=== PATIENT | female | born 1950 | race Caucasian/White ===

== ENCOUNTER 2020-07-10 06:17 | Day surgery (SDC) | payer MEDICARE, SELFPAY ==
[2020-07-05 10:51] VITALS: BMI 25.0
--- NOTE | 2020-07-05 12:29 | HP_ITS ---
DATE OF SERVICE: 07/10/2020 CHIEF COMPLAINT: Colitis. HISTORY OF PRESENT ILLNESS: The patient is a pleasant 69-year-old woman, who presents for colonoscopy. She has a history of colitis with intramural sigmoid and hepatic abscesses. She was hospitalized in May in [place] and at that time found to have portal vein thrombosis. She was started on Eliquis. Her colitis was treated with antibiotics. She had a second hospitalization for diarrhea after the first hospitalization and was discharged to finish an outpatient course of antibiotics. She will undergo followup colonoscopy because of her history of colitis with abscess as well as diarrhea. PAST MEDICAL HISTORY: 1. COPD. 2. Diabetes mellitus type 2. 3. Portal venous thrombosis. 4. Hypertension. 5. Elevated cholesterol. 6. Gastroesophageal reflux disease. 7. Acute congestive heart failure secondary to diastolic dysfunction during her prior hospitalization. Cardiac catheterization showing normal coronaries. CURRENT MEDICATIONS: Metoprolol, atorvastatin, Protonix, Eliquis, Lasix. ALLERGIES: SULFA. FAMILY HISTORY: This is reviewed with the patient and is noncontributory. SOCIAL HISTORY: One and half pack per day smoking. No alcohol use. REVIEW OF SYSTEMS: SKIN: No pruritus. HEENT: Negative. CARDIOPULMONARY: No shortness of breath or chest pain. GASTROINTESTINAL: As above. GENITOURINARY: Negative. NEUROPSYCHIATRIC: Negative. PHYSICAL EXAMINATION: lungs ar clear heart shows a regular rate and rhythm abdomen is soft and nontender, bowel sounds are present.. IMPRESSION: Colitis with intramural abscess and hepatic abscess. PLAN: Colonoscopy. Risks and benefits of the procedure have been discussed with the patient, who understands and agrees to proceed. She understands that she has been advised to stop anticoagulation 3 days before the procedure. MD LISANDRA Ashby/PETER / [phone] MTDAlisia
--- NOTE | 2020-07-05 14:15 | HO.ANESPROP2 ---
HPI - Anesthesia Eval Consult details Narrative: 69yo F for Colonoscopy [facility] Past Medical History Medical History (Updated 07/05/20 @ 13:50 by Belinda Cook) Abscess of sigmoid colon COPD (chronic obstructive pulmonary disease) Diabetes Elevated cholesterol GERD (gastroesophageal reflux disease) Hepatic lesion HTN (hypertension) Myocardial infarction On anticoagulant therapy On beta ric at home Portal vein thrombosis Smoking history Wears dentures Surgical History Surgical History (Updated 07/05/20 @ 10:55 by Belinda Cook) H/O colonoscopy Social History Social History Smoking Status: Current every day smoker Cigarettes Per Day: 5 Smoked in Last 30 Days: Yes Use of substances other than those prescribed or required for medical reasons: No Advance Directives Information Provided: No Recently lost weight without trying: No Meds Allergies Allergy/AdvReac Type Severity Reaction Status Date / Time Sulfa (Sulfonamide Allergy Intermediate Rash Verified 07/05/20 10:57 Antibiotics) Home Medications Medication Instructions Recorded Confirmed Type Anoro Ellipta 1 puff PO DAILY 07/05/20 07/05/20 History Eliquis 5 mg PO BID 07/05/20 07/05/20 History aspirin 81 mg PO DAILY 07/05/20 07/05/20 History atorvastatin 80 mg PO DAILY 07/05/20 07/05/20 History furosemide 20 mg PO DAILY 07/05/20 07/05/20 History metformin 500 mg PO DAILY 07/05/20 07/05/20 History metoprolol tartrate 25 mg PO BID 07/05/20 07/05/20 History pantoprazole 40 mg PO DAILY 07/05/20 07/05/20 History Exam Exam Date and Time: July 05, 2020 1415 Height,Weight and Vital Signs: Height 5 ft Weight 58.06 kg Pertinent Lab Results Pertinent Lab Results: 06/01/20 Outside provider WBC,HCT,HGB WNL PLT 466 (H) BUN/Creat WNL NA, K, CL WNL CO2 30(H) Alk Phos 155 (H) other LFT WNL Narrative Narrative: ECHO 05/05/20: LVEF 50-55%, No RWMA, impaired relax, Nonspecific thickening of aorta cusps, No aortic stenosis Cardiac Cath 05/03/20: no evidence of obstructive epicardial CAD CTA abdomen 04/2020: acute thrombosis involving distal portion of main portal vein extending into branches of the left portal vein; Ill-defined hypodensity in the right lobe of liver measuring up to 3cm adjacent to R hepatic vein. Multiple hypodensities are seen in the left lobe of the liver measuring up to 1.2cm. This is highly concerning for metastasis; diffuse wall thickening with mural stratification, involving short segment of sigmoid colon concerning for malignancy. EKG lateral ST changes and ST depression in the inferior leads (per [facility] note 06/19/20) Assessment and Plan Assessment Anesthesia Assessment: Chart Reviewed
[2020-07-10 06:48] LABS: Glucose, Whole Blood 144 mg/dL (60-115)
[2020-07-10 06:53] VITALS: BP 123/59; PULSE 83; RESP 20; TEMP 37.1; O2SAT 92
--- NOTE | 2020-07-10 07:26 | MHC.SHP ---
Pre-Procedural Eval Section A The patient is an INPATIENT: No Changes since office visit: No Cold of Flu in the past 2 weeks, No New Medical Problems, No Changes in Medication and No Patient answered all questions Section B Chief Complaint: colitis Allergies: Allergies Allergy/AdvReac Type Severity Reaction Status Date / Time Sulfa (Sulfonamide Allergy Intermediate Rash Verified 07/05/20 10:57 Antibiotics) Plan Patient has been examined and remains a candidate for the planned procedure
[2020-07-10] MEDS: Lactated Ringers 1,000 ML 50 ML IVCONT (07:40)
[2020-07-10 07:57] VITALS: BP 121/46; PULSE 88; RESP 14; TEMP 36.7; O2SAT 96
--- NOTE | 2020-07-10 08:00 | PM.OP ---
Brief Operative Note Date of Service: 07/10/20 Post-op diagnosis: other (diverticulosis) Procedure: colonoscopy Surgeon: Taurus Nava Anesthesia: MAC Estimated blood loss (mL): 5 Pathology: other (sigmoid biopsies) Condition: stable Disposition: PACU
[2020-07-10 08:12] VITALS: BP 132/60; PULSE 79; RESP 15; TEMP 36.7; O2SAT 95
--- NOTE | 2020-07-10 08:24 | OP_ITS ---
SURGEON: Taurus Nava MD INDICATIONS: Colitis. PREOPERATIVE DIAGNOSIS: POSTOPERATIVE DIAGNOSIS: PROCEDURE PERFORMED: ESTIMATED BLOOD LOSS: COMPLICATIONS: ANESTHESIA: ASSISTANTS: SPECIMENS: PROCEDURE: Colonoscopy to the terminal ileum with biopsy. MEDICATIONS: Monitored anesthesia care. DESCRIPTION OF PROCEDURE: History and physical performed. The risks and benefits of the procedure were explained to the patient. Informed consent was obtained. The patient was placed in left lateral decubitus position. A digital rectal exam was performed and was found to be normal. The Olympus pediatric video colonoscope was introduced into the rectum and advanced to the cecum without difficulty. The cecum was identified by transillumination, palpation, and identification of ileocecal valve. Examination was performed. The scope was removed. She tolerated the procedure well and was taken to recovery area in stable condition. FINDINGS: The terminal ileum was examined and appeared normal. The visualized colonic mucosa was normal. The quality of the prep was good. There was a slightly tortuous sigmoid with moderate diverticulosis and no evidence of colitis. Random biopsies were obtained from the sigmoid. Retroflexed examination showed moderately large internal hemorrhoids. IMPRESSION: Diverticulosis. RECOMMENDATIONS: Follow up the biopsy results. MD LISANDRA Ashby/PTEER / [id number]
--- NOTE | 2020-07-10 08:45 | HO.POSTANES ---
Post Anesthesia Evaluation Post Anesthesia Evaluation Vital Signs: Vital Signs Temp Pulse Resp BP Pulse Ox 07/10/20 08:12 98.1 F 79 15 132/60 95 07/10/20 07:57 98.1 F 88 14 121/46 L 96 07/10/20 06:53 98.7 F 83 20 123/59 L 92 Anesthesia: Monitored Mental Status: Awake Pain Control: Satisfactory Nausea/Vomiting: None Hydration: Adequate Anesthesia-Related Issues: No Anes. Related Issues
== END 2020-07-10 08:38 | disposition home or self-care (01) ==
PROVIDERS: PCP Internal Medicine; Visit Provider Internal Medicine Gastroenterology
PROC: 0DJD8ZZ Inspection of Lower Intestinal Tract, Via Natural or Artificial Opening Endoscopic (ICD-10-PCS; CPT 45378; principal; 2020-07-10 07:30)
DX: K57.30 Diverticulosis of large intestine without perforation or abscess without bleeding (principal); K64.8 Other hemorrhoids; E11.9 Type 2 diabetes mellitus without complications; I81 Portal vein thrombosis; Z79.01 Long term (current) use of anticoagulants; Z79.84 Long term (current) use of oral hypoglycemic drugs; Z88.2 Allergy status to sulfonamides
CPT/HCPCS: 45380; 82947; 88305